=== PATIENT | male | born 1980 | race Caucasian/White ===

== ENCOUNTER 2024-06-09 11:38 | Emergency (ER) | payer OTHER ==
[~2024-06-09] VITALS: Ht 180.3 cm; Wt 84.6 kg
[~2024-06-09 11:38] MED LIST: NORCO 5-325 TA1 EACH PO; PRILOSEC20 MG PO
[2024-06-09] MEDS ORDERED: ZESTRIL5 MG PO (11:52)
[2024-06-09] MEDS ORDERED: GABAPENTIN800 MG PO (11:52)
[2024-06-09] MEDS ORDERED: METFORMIN HCL500 MG PO (11:52)
[2024-06-09] MEDS ORDERED: RIZATRIPTAN5 MG PO (11:56)
[2024-06-09] MEDS ORDERED: TIZANIDINE HCL2 M1 PO (11:56)
[2024-06-09 12:44] LABS: BASOPHILS 0.6 % (0-2); EOSINOPHILS 1.7 % (0-6); HEMATOCRIT 45.3 % (35.0-50.0); HEMOGLOBIN 15.8 g/dL (12.0-18.0); MCH 31.9 (27-36); MCHC 34.9 g/dl (30-36); MCV 91.5 fl (81-99); NEUTROPHILS 73.7 % (39-80); PLATELET COUNT 240 K/uL (140-440); RBC 4.95 M/ul (4.3-5.7); RDW 13.5 (10.5-15.0)
[2024-06-09 13:00] LABS: ALBUMIN/GLOBULIN RATIO 1.25 (1.1-2.4); ANION GAP 12.8 (7-21); BILIRUBIN, TOTAL 0.7 mg/dL (0.2-1.0); BUN/CREATININE RATIO 13.15 (6.0-28.6); CREATININE, SERUM 1.14 mg/dL (0.70-1.30); POTASSIUM 3.8 mmol/L (3.5-5.1); PROTEIN, TOTAL 7.2 g/dL (6.4-8.2)
[2024-06-09 13:32] LABS: BILIRUBIN, URINE NEGATIVE (negative); BLOOD/HGB, URINE NEGATIVE (Negative); KETONE, URINE SMALL (Negative); LEUK ESTERASE, URINE NEGATIVE (negative); NITRITE, URINE NEGATIVE (negative)
[2024-06-09] MEDS ORDERED: SUCRALFATE 1 GM TAB PO ONE (13:45)
[2024-06-09] MEDS ORDERED: ONDANSETRON 4 MG TAB ODT SL ONE (13:45)
[2024-06-09] MEDS ORDERED: ONDANSETRON ODT8 MG PO (13:53)
[2024-06-09] MEDS ORDERED: CARAFATE1 GM PO (13:53)
[2024-06-09 14:05] VITALS: BP 131/79
== END 2024-06-09 14:05 | disposition home or self-care (01) ==
LOC: ED 11:38
PROVIDERS: Emergency Medicine
DX: K29.70 Gastritis, unspecified, without bleeding (principal); K21.9 Gastro-esophageal reflux disease without esophagitis; F17.200 Nicotine dependence, unspecified, uncomplicated; Z79.84 Long term (current) use of oral hypoglycemic drugs; Z79.899 Other long term (current) drug therapy; Z91.030 Bee allergy status; Z88.0 Allergy status to penicillin
CPT/HCPCS: 36415; 80053; 81003; 83690; 85025; 99284; A9270